=== PATIENT | female | born 1965 | race Hispanic/Latino ===

== ENCOUNTER 2016-09-12 09:23 | Outpatient (CLI) | payer BC ==
[2016-09-12 10:36] LABS: ALT (SGPT) 29 U/L (0-55); AST (SGOT) 22 U/L (5-34); Alkaline Phosphatase 102 U/L (40-150); Anion Gap 14 mmol/L (10-20); BUN (Urea Nitrogen) 13 mg/dL (7.0-18.7); Bilirubin, Total 0.9 mg/dL (0.2-1.2); Calc. Creatinine Clearance 0 mL/min (70-130); Calcium 9.2 mg/dL (7.8-10.44); Carbon Dioxide 22 mmol/L (22-29); Chloride 109 mmol/L (98-107); Estimated GFR-MDRD 74; Globulin 3.3 g/dL (2.4-3.5); Hemoglobin A1c 5.3 % (4.0-6.0); LDL Cholesterol, Calculated 95 mg/dL; Protein, Total 7.6 g/dL (6.0-8.3)
== END 2016-09-12 09:24 | disposition home or self-care (01) ==
LOC: BURLAB 09:23
PROVIDERS: ATTEND Internal Medicine Endocrinology, Diabetes & Metabolism
DX: E55.9 Vitamin D deficiency, unspecified (principal); R73.01 Impaired fasting glucose
CPT/HCPCS: 36415; 80053; 80061; 83036